=== PATIENT | female | born 1970 | race Caucasian/White ===

== ENCOUNTER → 2017-06-07 | Outpatient (CLI) | payer OTHER ==
[~2017-06-07] MED LIST: IOPAMIDOL (ISOVUE-300) 100 ML BTL ONE
== END ==
LOC: CIMAGING 10:57
PROVIDERS: ATTEND Family Medicine
DX: K59.00 Constipation, unspecified (principal)
CPT/HCPCS: 74177-PO; Q9967

== ENCOUNTER 2017-10-18 10:23 | Observation (INO) | payer OTHER ==
[2017-10-18] MEDS ORDERED: NS 1,000 ML IV ONE (10:44)
--- NOTE | 2017-10-18 10:46 | EDPHY ---
H & P Stated Complaint: c/o RLQ pain since last night - denies N/V/D Time Seen by Provider: 10/18/17 10:35 HPI/ROS: CHIEF COMPLAINT: Right lower quadrant pain HISTORY OF PRESENT ILLNESS: The patient is a 46-year-old female with a history of microscopic colitis who comes to the emergency department complaining of right lower quadrant pain that began last night. It was severe last night but has improved this morning. No nausea vomiting. No diarrhea. No fever. She states that it felt like previous ovarian cysts but much worse. No vaginal bleeding or discharge. No urinary symptoms. She has had a but no other abdominal surgeries. Her states that he could feel a lump in her right lower quadrant last night but it is now gone. REVIEW OF SYSTEMS: Constitutional: denies: chills, fever, recent illness, recent injury EENTM: denies: blurred vision, double vision, nose congestion Respiratory: denies: cough, shortness of breath Cardiac: denies: chest pain, irregular heart rate, lightheadedness, palpitations Gastrointestinal/Abdominal: See HPI denies: diarrhea, nausea, vomiting, blood streaked stools Genitourinary: denies: dysuria, frequency, hematuria, pain Musculoskeletal: denies: joint pain, muscle pain Skin: denies: lesions, rash, jaundice, bruising Neurological: denies: headache, numbness, paresthesia, tingling, dizziness, weakness Hematologic/Lymphatic: denies: blood clots, easy bleeding, easy bruising Immunologic/allergic: denies: HIV/AIDS, transplant EXAM: GENERAL: Well-appearing, well-nourished and in no acute distress. HEAD: Atraumatic, normocephalic. EYES: Pupils equal round and reactive to light, extraocular movements intact, sclera anicteric, conjunctiva are normal. ENT: TMs normal, nares patent, oropharynx clear without exudates. Moist mucous membranes. NECK: Normal range of motion, supple without lymphadenopathy or JVD. LUNGS: Breath sounds clear to auscultation bilaterally and equal. No wheezes rales or rhonchi. HEART: Regular rate and rhythm without murmurs, rubs or gallops. ABDOMEN: Right lower quadrant pain and tenderness, no guarding or rebound. No palpable masses. BACK: No CVA tenderness, no spinal tenderness, step-offs or deformities EXTREMITIES: Normal range of motion, no pitting or edema. No clubbing or cyanosis. NEUROLOGICAL: Cranial nerves II through XII grossly intact. Normal speech, normal gait. 5/5 strength, normal movement in all extremities, normal sensation PSYCH: Normal mood, normal affect. SKIN: Warm, dry, normal turgor, no visible rashes or lesions. Source: Patient Exam Limitations: No limitations - Personal History LMP (Females 10-55): Post Menopausal Current Tetanus Diphtheria and Acellular Pertussis (TDAP): Yes - Medical/Surgical History Hx Asthma: No Hx Chronic Respiratory Disease: No Hx Diabetes: No Hx Cardiac Disease: No Hx Renal Disease: No Hx Cirrhosis: No Hx Alcoholism: No Hx HIV/AIDS: No Hx Splenectomy or Spleen Trauma: No Other PMH: denies health problems - Family History Significant Family History: No pertinent family hx - Social History Smoking Status: Never smoked Alcohol Use: Sober Drug Use: None Constitutional: Initial Vital Signs Temperature (C) 36.6 C 10/18/17 10:35 Heart Rate 81 10/18/17 10:35 Respiratory Rate 18 10/18/17 10:35 Blood Pressure 139/88 H 10/18/17 10:35 O2 Sat (%) 97 10/18/17 10:35 O2 Delivery Mode Room Air O2 (L/minute) 2 Allergies/Adverse Reactions: No Known Allergies Allergy (Unverified 08/03/12 09:49) Home Medications: Medication Instructions Recorded Herbals/Supplements -Info Only 1 ea PO DAILY 10/18/17 Medical Decision Making - Diagnostics Imaging: Discussed imaging studies w/ parcel wrapper Radiologist ED Course/Re-evaluation: 12:50 p.m. the patient continues to have right lower quadrant pain and tenderness on exam. She states that it does not hurt unless it is palpated. Ultrasound is not revealing. Lab work is unremarkable other than mixed picture for hematuria. She does not have any flank pain or radiating to her groin. I will obtain a CT scan to evaluate her appendix further and possibly kidney stones. She understands this. She declines pain or nausea medication again. 1:50 p.m. I discussed the case with Dr. bonita Gonzalez accepted to the ER will plan to operate. He will speak with the patient about non operative options. Differential Diagnosis: Partial list of the Differential diagnosis considered include but were not limited to; appendicitis, kidney stone, ovarian cyst and although unlikely based on the history and physical exam, I also considered perforation, ischemia , obstruction. - Data Points Laboratory Results: Laboratory Results 10/18/17 10:50 10/18/17 10:50 Medications Given: Potassium Chloride/Sodium Chloride (Ns W/ 20 Kcl/L) 1,000 mls @ 125 mls/hr IV CONT ELIZ Stop: 04/16/18 16:44 Last Admin: 10/18/17 18:40 Dose: 1,000 mls Potassium Chloride/Dextrose/Sod Cl (D5w 1/2 Ns W/ 20 Kcl/L) 1,000 mls @ 125 mls /hr IV CONT ELIZ Stop: 04/16/18 17:29 Last Admin: 10/19/17 02:25 Dose: 1,000 mls Discontinued Medications Ertapenem (Invanz) 1 gm IVP EDNOW ONE PRN Reason: Protocol Stop: 10/18/17 13:40 Last Admin: 10/18/17 14:03 Dose: 1 gm Sodium Chloride (Ns) 1,000 mls @ 0 mls/hr IV EDNOW ONE; Wide Open PRN Reason: Protocol Stop: 10/18/17 10:45 Last Admin: 10/18/17 11:09 Dose: 1,000 mls Departure - Departure Disposition: [facility] Inpatient Acute Clinical Impression: Acute appendicitis Qualifiers: Acute appendicitis type: with localized peritonitis Qualified Code(s): K35.3 - Acute appendicitis with localized peritonitis Condition: Fair
[2017-10-18 10:49] LABS: COLOR PALE YELLOW; LEUKOCYTE ESTERASE,URINE NEGATIVE (NEGATIVE); NITRITE,URINE NEGATIVE (NEGATIVE)
[2017-10-18 10:56] LABS: % IMMATURE GRANULYOCYTES 0.2 % (0.0-1.1); ABSOLUTE IMMATURE GRANULOCYTES 0.01 10^3/uL (0.00-0.10); ADD DIFF? NO; ADD MORPH? NO; ADD SCAN? NO; ATYPICAL LYMPHOCYTE FLAG 10 (0-99); FRAGMENT RBC FLAG 0 (0-99); HEMATOCRIT 40.9 % (38.0-47.0); HEMOGLOBIN 13.9 g/dL (12.6-16.3); LEFT SHIFT FLG 0 (0-99); LIPEMIA HEMOLYSIS FLAG 90 (0-99); MEAN CELL HEMOGLOBIN 29.3 pg (27.9-34.1); MEAN CELL VOLUME 86.1 fL (81.5-99.8); MEAN PLATELET VOLUME 10.3 fL (8.7-11.7); PLATELET CLUMPS FLAG 0 (0-99); PLATELET COUNT 226 10^3/uL (150-400); RED BLOOD CELL COUNT 4.75 10^6/uL (4.18-5.33); RED CELL DISTRIBUTION WIDTH 12.7 % (11.5-15.2)
[2017-10-18 10:59] LABS: WBC,URINE 0-1 /hpf (0-3)
[2017-10-18 11:01] LABS: BACTERIA TRACE /hpf (NONE SEEN)
[2017-10-18 11:19] LABS: ALANINE AMINOTRANSFERASE 45 IU/L (9-52); ALBUMIN 4.1 g/dL (3.5-5.0); ALKALINE PHOSPHATASE 68 IU/L (38-126); ANION GAP 16 mEq/L (8-16); ASPARTATE AMINOTRANSFERASE 20 IU/L (14-46); BILIRUBIN,TOTAL 0.5 mg/dL (0.1-1.4); BILIRUBIN-UNCONJUGATED 0.5 mg/dL (0.0-1.1); CALCIUM 9.4 mg/dL (8.5-10.4); CARBON DIOXIDE 24 mEq/l (22-31); CHLORIDE 104 mEq/L (97-110); CREATININE 0.7 mg/dL (0.6-1.0); GLOMERULAR FILTRATION RATE > 60; GLUCOSE 97 mg/dL (70-100); POTASSIUM 4.1 mEq/L (3.5-5.2); SODIUM 144 mEq/L (134-144); TOTAL PROTEIN 6.8 g/dL (6.3-8.2)
[2017-10-18] MEDS ORDERED: IOPAMIDOL (ISOVUE-300) 100 ML BTL ONE (12:59)
[2017-10-18] MEDS ORDERED: ERTAPENEM 1 GM VIAL IVP ONE (13:39)
[2017-10-18] MEDS ORDERED: NS 100 ML BAG IV ONE (13:54)
[2017-10-18] MEDS ORDERED: HYDROmorphone HCL/NS/PF 0.4 MG/2 ML SYR IVP PRN (16:33)
[2017-10-18] MEDS ORDERED: ONDANSETRON 4 MG/2 ML VIAL IVP PRN (16:33)
[2017-10-18] MEDS ORDERED: D5W 1/2 NS W/ 20 KCl/L 1,000 ML IV SCH (17:30)
--- NOTE | 2017-10-18 17:30 | SOAPPROG ---
DIANE Progress Note Assessment/Plan: Assessment: 46-YEAR-OLD FEMALE WITH SYMPTOMS AND CT SCAN SUGGESTING APPENDICITIS. HOWEVER SHE IS FEELING BETTER AND HER WHITE COUNT IS NORMAL SHE WISHES TO BE TREATED WITH IV ANTIBIOTICS RATHER THAN SURGERY RISKS AND OPTIONS BEEN FULLY DISCUSSED AND DESPITE MY RECOMMENDATIONS TO HAVE SURGERY SHE STILL WISHES TO PROCEED WITH ANTIBIOTIC THERAPY WE HAVE DISCUSSED THE POSSIBILITY OF RECURRENCE DISEASE AND PROGRESSION TO PERFORATION OR ABSCESS Plan: ADMIT FOR IV ANTIBIOTICS/ID CONSULT 10/18/17 17:29 Objective: Vital Signs Temp Pulse Resp BP Pulse Ox 36.6 C 74 16 134/84 H 97 10/18/17 17:12 10/18/17 17:12 10/18/17 17:12 10/18/17 17:12 10/18/17 17:12 ICD10 Worksheet Patient Problems: Problems Problem Status Onset Acute appendicitis Acute
--- NOTE | 2017-10-18 18:38 | GHP ---
[f rep st] PREOP HISTORY AND PHYSICAL DATE OF ADMISSION: 10/18/2017 HISTORY OF PRESENT ILLNESS: A 46-year-old female, presents with right lower quadrant pain. The ultr asound was negative. A CT scan shows a thickened retrocecal appendix with some subhash-inflammatory jing nges. She was referred over for acute appendicitis. Her white count is normal and she is afebrile. She has had problems with colitis over the last year, with no diarrhea, only constipation symptoms, with a diagnosis of microscopic colitis. She is admitted at this time for IV antibiotics and observa tion. The patient is refusing surgery at this time, and wants to be treated with antibiotics only. The risks and options have been fully discussed multiple times including possibility of perforation, recurrent disease once the antibiotics are done, failure to improve her situation, but she insists on proceeding with antibiotic therapy only. PAST MEDICAL HISTORY: Includes a . No other major surgeries or hospitalizations. ALLERGIES: None. MEDICATIONS: None. REVIEW OF SYSTEMS: Reveals no major findings on a full 10-point review except as related to the pres ent illness. She does have a history of microscopic colitis, but without diarrhea. Specifically den ies any cardiopulmonary symptoms. She does not smoke. PHYSICAL EXAMINATION: GENERAL: Reveals an alert 46-year-old female in no acute distress. She is af ebrile. HEAD and NECK: Pupils normal. No adenopathy or oral lesions. Neck is supple. CHEST: Chip ar. CARDIAC: Regular rhythm. ABDOMEN: Soft, mildly tender in the right lower quadrant, but no per itoneal signs and no masses. No CVA tenderness. EXTREMITIES: Full range of motion. Full pulses. NEUROLOGIC: Physiologic. SKIN: No rashes or lesions. IMPRESSION: Probable retrocecal acute appendicitis. PLAN: Admit for IV antibiotics, observation. The patient has refused surgical intervention at this time. /[id number]/MODL
[2017-10-18] MEDS: NS W/ 20 KCl/L 1,000 ML IV SCH (18:40)
[2017-10-19 06:37] LABS: ADD DIFF? NO; ADD MORPH? NO; ADD SCAN? NO; ATYPICAL LYMPHOCYTE FLAG 10 (0-99); FRAGMENT RBC FLAG 0 (0-99); HEMATOCRIT 38.2 % (38.0-47.0); HEMOGLOBIN 12.9 g/dL (12.6-16.3); LEFT SHIFT FLG 0 (0-99); LIPEMIA HEMOLYSIS FLAG 90 (0-99); MEAN CELL HEMOGLOBIN 29.8 pg (27.9-34.1); MEAN CELL HEMOGLOBIN CONCENTR. 33.8 g/dL (32.4-36.7); MEAN CELL VOLUME 88.2 fL (81.5-99.8); MEAN PLATELET VOLUME 11.2 fL (8.7-11.7); PLATELET CLUMPS FLAG 0 (0-99); PLATELET COUNT 196 10^3/uL (150-400); RED BLOOD CELL COUNT 4.33 10^6/uL (4.18-5.33); RED CELL DISTRIBUTION WIDTH 12.8 % (11.5-15.2)
[2017-10-19] MEDS ORDERED: ERTAPENEM 1 GM VIAL IVP SCH (09:00)
[2017-10-19] MEDS: NS W/ 20 KCl/L 1,000 ML IV SCH (09:15)
--- NOTE | 2017-10-19 09:25 | SOAPPROG ---
SOAP Progress Note Assessment/Plan: Assessment/Plan: 46 Y F c hx colitis, csxn, now with probable appendicitis. Refusing surgery. Continue IV abx today. Clear liquid this am. Possibly regular diet later today--will need to d/w Dr. Gonzalez. If does well would send home on oral antibiotics with close outpatient f/u. S: no fevers or chills. no pain overnight. no n/v. O: alert, nad no wob abd soft, nt, able to deeply palpate 10/19/17 09:16 Objective: Vital Signs Temp Pulse Resp BP Pulse Ox 36.8 C 79 18 139/84 H 98 10/19/17 09:02 10/19/17 09:02 10/19/17 09:02 10/19/17 09:02 10/19/17 09:02 Laboratory Results 10/19/17 06:20 10/18/17 10/19/17 10/20/17 05:59 05:59 05:59 Intake Total 520 1404 Balance 520 1404 ICD10 Worksheet Patient Problems: Problems Problem Status Onset Acute appendicitis Acute
[2017-10-19 15:34] VITALS: PULSE 62; RESP 16; TEMP 98.3; O2SAT 97
--- NOTE | 2017-10-19 17:08 | ASDISCHSUM ---
Discharge Information Plan Status:Home with No Needs Medically Cleared to Leave:10/18/2017 Discharge Date:10/18/2017 CM D/C Disposition:Home, Routine, Self-Care ADT D/C Disposition:Home, Routine, Self-Care Projected Discharge Date:10/19/2017 06:00 PM Transportation at D/C:Family Discharge Delay Reason: Follow-Up Date:10/19/2017 06:00 PM Discharge Slot: Final Diagnosis:ABdominal pain Placement Information Patient Contact Information Contact Name:LENCHO Relationship: Address:[address] City:[place] Alternate Phone: [facility]/Zip Code:[place] [address] Email: Financial Information Financial Class:HMO and PPO Plans Primary Plan Desc:[employer] Primary Plan Number:[id number] Secondary Plan Desc: Secondary Plan Number: Assessment Information Intervention Information
--- NOTE | 2017-10-19 17:14 | ASMTCMCOM ---
CM Note CM Note Notes: Patient was admitted for abdominal pain and was seen by Dr. Gonzalez. Patient declined surgery for appy and will d/c home on oral antibiotics. No additional Case management needs apparent at this time. Date Signed: 10/19/2017 05:13 PM Electronically Signed By:LISA Britton
[2017-10-19 17:31] VITALS: BP 124/65
== END 2017-10-19 17:30 | disposition home or self-care (01) ==
LOC: CED 10:23 → F1N 16:31
PROVIDERS: ADMIT Surgery; ATTEND Surgery
DX: R10.31 Right lower quadrant pain (principal)
CPT/HCPCS: 74177; 76705; 76856; G0378; 80048-PO; 80076-PO; 81003-PO; 81015-PO; 83690-PO; 84703-PO; 85025-PO; 96374; J1335; Q9967